=== PATIENT | female | born 1960 | race Caucasian/White ===

== ENCOUNTER 2020-01-20 18:22 | Emergency (ER) | payer OTHER ==
[~2020-01-20] VITALS: Ht 154.9 cm; Wt 63.5 kg
[2020-01-20] MEDS ORDERED: OXYCODONE HCL10 M1 (19:23)
[2020-01-20] MEDS ORDERED: MOBIC7.5 MG (19:23)
== END 2020-01-20 22:10 | disposition home or self-care (01) ==
LOC: ER 18:22
DX: S93.491A Sprain of other ligament of right ankle, initial encounter (principal); X50.1XXA Overexertion from prolonged static or awkward postures, initial encounter; Y93.89 Activity, other specified; Y92.89 Other specified places as the place of occurrence of the external cause; Y99.8 Other external cause status